=== PATIENT | male | born 1955 | race Caucasian/White ===

== ENCOUNTER 2018-05-14 07:15 | Inpatient (IN) | payer BC, OTHER ==
[2018-05-14] MEDS ORDERED: ACETAMINOPHEN 500 MG TAB PO ONE (07:59)
[2018-05-14] MEDS ORDERED: GABAPENTIN 300 MG CAP PO ONE (07:59)
[2018-05-14] MEDS ORDERED: morphINE SR 15 MG TAB PO ONE (07:59)
[2018-05-14] MEDS ORDERED: ceFAZolin 2 GM/DEXTROSE 100 ML IV ONE (07:59)
[2018-05-14] MEDS ORDERED: LR 1,000 ML IV ONE (08:00)
[2018-05-14] MEDS ORDERED: LIDOCAINE 1% 2 ML INJ ID PRN (08:00)
[2018-05-14] MEDS ORDERED: MIDAZOLAM 2 MG/2 ML VIAL IVP ONE (08:22)
[2018-05-14] MEDS ORDERED: BUPIVACAINE 0.25% 30 ML SDV ONE (08:32)
[2018-05-14] MEDS ORDERED: THROMBIN (BOVINE) 20,000 UNIT VIAL TP ONE (08:32)
[2018-05-14] MEDS ORDERED: CHLORHEXIDINE GLUC HIBICLENS 118 ML BTL TP ONE (08:32)
[2018-05-14] MEDS ORDERED: EPINEPHrine 1 MG/ML INJ ONE (08:33)
[2018-05-14] MEDS ORDERED: GENTAMICIN SULFATE 80 MG/2 ML VIAL ONE (08:33)
[2018-05-14] MEDS ORDERED: fentaNYL 250 MCG/5 ML INJ ONE (09:57)
[2018-05-14] MEDS ORDERED: PROPOFOL/EMULSION 500 MG/50 ML BOTTLE IV ONE ×3 (09:58→14:45)
[2018-05-14] MEDS ORDERED: BACITRACIN 50,000 UNITS/10 ML SYR IRR ONE (10:39)
--- NOTE | 2018-05-14 10:39 | PDHPUP ---
History & Physical Update H&P update statement: This history and physical update is based on an assessment of the patient which was completed after admission or registration (within 24 hours), but prior to the surgery/procedure. H&P update: H&P reviewed & patient examined
[2018-05-14] MEDS ORDERED: BISACODYL 10 MG SUPP PR PRN (10:42)
[2018-05-14] MEDS ORDERED: ONDANSETRON 4 MG/2 ML VIAL IVP PRN (10:42)
[2018-05-14] MEDS ORDERED: MAGNESIUM HYDROXIDE 30 ML UDCUP PO PRN (10:42)
[2018-05-14] MEDS ORDERED: POLYETHYLENE GLYCOL 3350 17 GM PKT PO PRN (10:42)
[2018-05-14] MEDS ORDERED: diphenhydrAMINE 25 MG CAP PO PRN (10:42)
[2018-05-14] MEDS ORDERED: LACTULOSE 20 GM/30 ML UDCUP PO PRN (10:42)
[2018-05-14] MEDS ORDERED: ONDANSETRON DISINTEGRATING 4 MG TAB PO PRN (10:42)
[2018-05-14] MEDS ORDERED: FLUTICASONE NASAL 120 SPRAYS/16 GM MDI EACHNARE PRN (10:42)
[2018-05-14] MEDS ORDERED: NS 1,000 ML IV SCH (10:45)
--- NOTE | 2018-05-14 10:54 | POSTOPPROG ---
Post Op Note Date of Operation: 05/20/18 Surgeon: Hannah Patel Agile Coach: Mayra Gleason, PAC Anesthesia: GET(General Endotracheal) Pre-op Diagnosis: Lumbar stenosis Post-op Diagnosis: Lumbar stenosis Indication: Lumbar stenosis Procedure: L3-S1 TLIF/PSF Inf/Abcess present in the surg proc area at time of surgery?: No EBL: Minimal Drains: Lorne MARIA Addendum - Addendum .: S: Low back pain O: NAD A&Ox3 MAEx4 5/5 and equal in BUE and BLE A/p 63y/o s/p L3-S1 TLIF/PSF -Advance diet as tolerated -Optimize pain management -PT/OT -RUSLAN x1 -Post op xrays pending -DVT prophx: TEDs, SCDs, Lovenox okay POD1 -Please notify NS with any change in neuro/motor exam
[2018-05-14] MEDS ORDERED: TRANEXAMIC ACID 1,000 MG in NS 100 ML IV ONE (11:04)
--- NOTE | 2018-05-14 11:07 | PDANEPAE ---
ANE History of Present Illness 63 year old male for L3,4,5,TLIF for right lumbar radicular symptoms. ANE Past Medical History - Cardiovascular History Hx Hypertension: No Hx Arrhythmias: No Hx Chest Pain: No Hx Coronary Artery / Peripheral Vascular Disease: No Hx CHF / Valvular Disease: No Hx Palpitations: No - Pulmonary History Hx COPD: No Hx Asthma/Reactive Airway Disease: No Hx Recent Upper Respiratory Infection: No Hx Oxygen in Use at Home: No Hx Sleep Apnea: No Sleep Apnea Screening Result - Last Documented: Negative - Neurologic History Hx Cerebrovascular Accident: No Hx Seizures: No Hx Dementia: No - Endocrine History Hx Diabetes: No - Renal History Hx Renal Disorders: No - Liver History Hx Hepatic Disorders: No - Neurological & Psychiatric Hx Hx Neurological and Psychiatric Disorders: Yes Neurological / Psychiatric History Comment: SCIATICA AND HIP PAIN - Cancer History Hx Cancer: No - Congenital Disorder History Hx Congenital Disorders: No - GI History Hx Gastrointestinal Disorders: No Gastrointestinal History Comment: NONE - Other Health History Other Health History: MUCOUS BUILD UP OVERNIGHT - Chronic Pain History Chronic Pain: No - Surgical History Prior Surgeries: carpal tunnel. R & L SHOULDER SURGERY ANE Review of Systems Review of systems is: negative Review of Systems: - Exercise capacity METS (RN): 5 METS ANE Patient History - Allergies Allergies/Adverse Reactions: No Known Allergies Allergy (Verified 04/11/18 10:54) - Home Medications Home Medications: Fluticasone Nasal [Flonase Nasal [place] (RX)] 1 sprays NASAL DAILY PRN 04/11/18 [ Last Taken 05/12/18] Glucosamine Sulfate [Glucosamine Sulfate 500 MG (*)] 500 mg PO DAILY 04/11/18 [ Last Taken 05/07/18] Herbals/Supplements -Info Only 1 ea PO DAILY 04/11/18 [Last Taken 05/07/18] Ibuprofen [Motrin (*)] 800 mg PO BID 04/11/18 [Last Taken 05/08/18] Multivitamins [Multivitamin (*)] 1 each PO DAILY 04/11/18 [Last Taken 05/07/18] [place]-3 Fatty Acids [Fish Oil 1000 mg (*)] 1,000 mg PO DAILY 04/11/18 [Last Taken 05/07/18] oxyCODONE IR [Oxycodone Ir (*)] 10 mg PO HS 04/11/18 [Last Taken 05/13/18] - NPO status NPO Since - Liquids (Date): 05/14/18 NPO Since - Liquids (Time): 08:00 NPO Since - Solids (Date): 05/13/18 NPO Since - Solids (Time): 21:00 - Smoking Hx Smoking Status: Never smoked - Family Anes Hx Family Hx Anesthesia Complications: none ANE Labs/Vital Signs - Vital Signs Blood Pressure: 162/84 Heart Rate: 59 Respiratory Rate: 15 O2 Sat (%): 96 Height: 173.99 cm Weight: 72.575 kg ANE Physical Exam - Airway Neck exam: FROM Mallampati Score: Class 2 Mouth exam: normal dental/mouth exam - Pulmonary Pulmonary: no respiratory distress - Cardiovascular Cardiovascular: regular rate and rhythym - ASA Status ASA Status: I, II (ETOH 3/day) ANE Anesthesia Plan Anesthesia Plan: general endotracheal anesthesia Lines/Monitors: arterial line
[2018-05-14] MEDS ORDERED: ALBUTEROL 3 ML DEYVIAL IH PRN (12:01)
[2018-05-14] MEDS ORDERED: MEPERIDINE 25 MG/0.5 ML AMP IVP PRN (12:01)
[2018-05-14] MEDS ORDERED: PROMETHAZINE HCL 25 MG/ML INJ IVP PRN (12:01)
[2018-05-14] MEDS ORDERED: METOCLOPRAMIDE 10 MG/2 ML VIAL IVP PRN (12:01)
[2018-05-14] MEDS ORDERED: LABETALOL HCL 5 MG/ML 20 ML MDV IVP PRN (12:01)
[2018-05-14] MEDS ORDERED: LR 500 ML IV PRN (12:01)
[2018-05-14] MEDS ORDERED: NALOXONE HCL 0.4 MG/ML INJ IVP PRN (12:01)
[2018-05-14] MEDS ORDERED: DIAZEPAM 5 MG/ML 1 ML SYR IVP PRN (12:01)
[2018-05-14] MEDS ORDERED: HYDROmorphONE/DILAUDID 2 MG/ML INJ ONE (12:10)
--- NOTE | 2018-05-14 15:00 | PDMN ---
Medical Necessity Medical necessity: [facility] S820 Lumbar Fusion, CPT 56134 Lumbar Fusion, MC IP only, 63 y/o pt s/p L3/4, L4/5, L5/S1, TLIF Lum Marquez Fusion w/ Stealth.
--- NOTE | 2018-05-14 17:37 | GOP ---
[f rep st] OPERATIVE REPORT DATE OF OPERATION: SURGEON: Hannah Patel DO NEUROSURGEON: Hannah Patel DO [employer] PROFESSOR: Flori Gleason PA-C PREOPERATIVE DIAGNOSIS: 1. Spondylolisthesis. 2. Stenosis. 3. Lumbago. 4. Herniated nucleus pulposus. 5. Radiculopathy. POSTOPERATIVE DIAGNOSIS: 1. Spondylolisthesis. 2. Stenosis. 3. Lumbago. 4. Herniated nucleus pulposus. 5. Radiculopathy. PROCEDURE PERFORMED: 1. L3-L4, L4-L5, L5-S1 transforaminal lumbar interbody fusion with Elevate 8 x 28 graft at L3-4, 7 x 28 graft at L4-5 and BMP and autologous bone at L5-S1 as the disk space was not large enough to plac e a graft beyond autologous bone and BMP. L3, L4, L5, S1 bilateral posterior pedicle screws. 2. Stealth stereotaxis. 3. Autograft, allograft and BMP. FINDINGS: SPECIMENS: None. ESTIMATED BLOOD LOSS: 200 mL. INDICATIONS: This is a 63-year-old male with significant back pain, leg pain with spondylolisthesis, stenosis, herniated disk and radiculopathy who has failed conservative management, elected to move f orward with L3, L4, L5, S1 TLIF. He understands that L2-3 is also stenotic, but he is not symptomati c from this at this time, and he was identified, consented and sites were marked. DESCRIPTION OF PROCEDURE: Brought to the operating room, anesthetized under general endotracheal tub e anesthesia, rolled onto the Lorne table. All pressure points were appropriately padded. He was prepped and draped in the usual sterile fashion. O arm was brought in. 18-gauge spinal needles were used to fabiola the incision. Incision was anesthetized with 0.5% Marcaine with epinephrine. Incision was made with a 10 blade. Hemostasis was obtained with bipolar and Bovie cautery dissecting down ont o the laminae of L3, L4, L5 and S1 and out around the facet joints at these levels. Oumartys was u sed in a conservative fashion for hemostasis. We then took an x-ray and verified we were in the appr opriate position. Placed a Immunetrics Stealth arm and performed a stereotactic spin. We then used a high-speed drill starting on the left side, to drill out the facet joints and at each of these levels . The L5-S1 facet joints were absolutely horizontal and could not get lateral enough to drill these out, so took off the superior portion of that facet joint, and then using the Stealth stereotactic aw l created a starting point at S1, then the PowerEase stereotactically to tap and measured a 6.5 x 40 mm screw at S1, which was placed with a PowerEase stereotactically after checking the hole with a bal l-tip probe. We then completed this procedure at L5, placing a 6.5 x 50 mm screw at L4, placing a 6. 5 x 55 mm screw at L3, placing a 6.5 x 55 mm screw. On the right, we completed the procedure, having decorticated all of the bone on the left side and all of the facet joints by doing the same on the r ight side. We actually removed the facet joints on the right side and using the same stereotactic pr ocedure, placed a 6.5 x 40 mm screw at S1, a 6.5 x 50 mm screw at L5, a 6.5 x 55 mm screw at L4 and a 6.5 x 55 mm screw at L3. We then placed 80 mm rods bilaterally, placed the locking caps and placed the patient under distraction bilaterally, locking these and verifying superiorly and inferiorly that we had tala visualized. We then brought in the microscope and using a high-speed drill and [place], removed the spinous process and lamina of L3, L4 and L5, and using the drill and 2 and 3 Kerrisons to perform a complete laminectomy and decompression facetectomy of L3-4, L4-5 and L5-S1 on the right. At L4-5 on the right there was a significant amount of scar. The nerve roots were well decompressed. We were then able to, starting at L3-4 retract the nerve root medially with a Immunetrics nerve root retractor and used an 11 blade to enter the disk space and then used a series of sequential dion, shaving up to a size 12, removing disk and cartilaginous endplate preparing the endplates with ring c urettes. We then measured the Elevate cage graft, packed BMP and the patient's own bone into the gra ft and tamped it into place so that it was in a good position in the AP and lateral plane, fully depl oyed the graft. Moved down to L4-5, where we were also able to perform the same procedure and place an Elevate graft. At L5-S1 the disk space was exceedingly small and very sclerotic. We retracted th e thecal sac medially and entered the disk space with an 11 blade, and then we tamped. We attempted a 5 shaver. We could not even get a 5 shaver well into this space. We were already getting endplate . I attempted a 6 osteotome. Again, we could not get the disk space open enough to place an actual PEEK graft or Elevate graft. However, we did pull out the endplate and packed this with BMP and the patient's own bone. We then copiously irrigated with over 2.5 L of gentamicin-infused saline, packed the remaining facet joints with BMP and autologous bone and out laterally with autologous bone and t hen trocar to drain out inferiorly placed in the subfascial space. The 10-Tunis[place] PVC drain after met iculous hemostasis had been obtained. Closed the fascia with 0 Vicryl pop-offs, subcutaneous layer o f 2-0 Vicryl pop-offs, cutaneous layer of 3-0 Vicryl pop-offs. The skin was closed with 4-0 running Monocryl and Steri-Strips. Drain was sutured with a 2-0 Vicryl pop-off and placed to bulb suction. Patient tolerated procedure well. Neuro monitor remained stable, and patient tolerated procedure wel l. CHIEF COMPLAINT: Back pain and leg pain. FLUIDS: 3200 mL crystalloid. URINE OUTPUT: Not recorded. DRAINS: One RUSLAN in the subfascial space to bulb suction. COMPLICATIONS: None. /[id number]/MODL
[2018-05-14] MEDS ORDERED: fentaNYL 100 MCG/2 ML INJ ONE (17:41)
[2018-05-14] MEDS ORDERED: DIAZEPAM 5 MG/ML 1 ML SYR ONE (17:41)
[2018-05-14] MEDS: fentaNYL 100 MCG/2 ML INJ IVP PRN ×3 (17:43→18:49)
[2018-05-14] MEDS ORDERED: LORazepam 1 MG TAB PO PRN (18:05)
[2018-05-14] MEDS ORDERED: FLUMAZENIL 0.5 MG/5 ML MDV IVP PRN (18:05)
[2018-05-14] MEDS: ACETAMINOPHEN 500 MG TAB PO SCH ×2 (19:40→21:14)
[2018-05-14] MEDS: METHOCARBAMOL 750 MG TAB PO PRN (19:41)
[2018-05-14] MEDS: THIAMINE HCL 500 MG in NS 100 ML IV SCH (19:49)
[2018-05-14] MEDS: SENNOSIDES/DOCUSATE SODIUM TAB PO SCH (19:55)
[2018-05-14] MEDS: FAMOTIDINE 20 MG TAB PO SCH (19:55)
[2018-05-14] MEDS: ceFAZolin 2 GM/DEXTROSE 100 ML IV SCH (19:57)
[2018-05-14] MEDS: oxyCODONE IR 5 MG TAB PO PRN (20:11)
[2018-05-15] MEDS: ceFAZolin 2 GM/DEXTROSE 100 ML IV SCH (02:19)
[2018-05-15] MEDS: oxyCODONE IR 5 MG TAB PO PRN ×5 (03:27→20:44)
[2018-05-15] MEDS: ACETAMINOPHEN 500 MG TAB PO SCH ×3 (06:31→20:17)
[2018-05-15] MEDS: METHOCARBAMOL 750 MG TAB PO PRN ×2 (07:52→18:44)
[2018-05-15] MEDS: SENNOSIDES/DOCUSATE SODIUM TAB PO SCH ×2 (07:54→20:17)
[2018-05-15] MEDS: MULTIVITAMINS 1 EACH TAB PO SCH (07:55)
[2018-05-15] MEDS: FAMOTIDINE 20 MG TAB PO SCH ×2 (07:55→20:25)
--- NOTE | 2018-05-15 08:05 | NEUSURGPN ---
Assessment/Plan: A/p 63y/o s/p L3-S1 TLIF/PSF POD#1 -Advance diet as tolerated -Optimize pain management - will increase oral meds today -PT/OT -RUSLAN x1 - 480cc out -Post op xrays pending -DVT prophx: TEDs, SCDs, Lovenox okay POD1 -Please notify NS with any change in neuro/motor exam -D/w Dr Patel -Call NS with any issues Subjective: Pt resting in bed, c/o back pain. Objective: AAOx3 NAD VSS MAEx4 Motor 5/5 BLE +LT JPx1 Hazel is out Urinary Catheter in Place: No Catheter Insertion Date: 05/14/18 - Physician Discussed Patient with : Jorge Neurosurgery Physical Exam - Vitals, I&O, Labs I and O 05/14/18 05/15/18 05/16/18 05:59 05:59 05:59 Intake Total 5030 Output Total 2880 Balance 2150 Weight 72.3 kg Intake: Oral (ml) 760 IV Intake (ml) 3500 IV Infused (ml) 770 Ns 1,000 ml @ 75 mls/hr 770 IV CONT DEDRICK Rx#: [id number] Output: Urine (ml) 2200 Catheter 2200 Estimated Blood Loss (ml) 200 RUSLAN Drain Output (ml) 480 #1 Right Lorne Pandya 480 Vital Signs Temp Pulse Resp BP Pulse Ox 37.0 C 68 16 138/74 H 94 05/15/18 07:43 05/15/18 07:43 05/15/18 07:43 05/15/18 07:43 05/15/18 07:43 ICD10 Worksheet Patient Problems: Problems Problem Status Onset Degenerative disc disease, lumbar Acute - ICD10 Problem Qualifiers (1) Degenerative disc disease, lumbar
[2018-05-15] MEDS: THIAMINE HCL 500 MG in NS 100 ML IV SCH (08:55)
[2018-05-15] MEDS: ENOXAPARIN 40 MG/0.4 ML SYR SC SCH (16:41)
[2018-05-15] MEDS: LORazepam 2 MG/ML INJ IVP PRN (20:24)
[2018-05-16] MEDS: METHOCARBAMOL 750 MG TAB PO PRN ×3 (00:13→19:38)
[2018-05-16] MEDS: oxyCODONE IR 5 MG TAB PO PRN ×5 (01:56→22:03)
[2018-05-16] MEDS: ACETAMINOPHEN 500 MG TAB PO SCH ×3 (06:33→22:03)
[2018-05-16] MEDS: ENOXAPARIN 40 MG/0.4 ML SYR SC SCH (08:02)
[2018-05-16] MEDS: FAMOTIDINE 20 MG TAB PO SCH ×2 (08:02→19:38)
[2018-05-16] MEDS: SENNOSIDES/DOCUSATE SODIUM TAB PO SCH ×2 (08:02→19:38)
[2018-05-16] MEDS: MULTIVITAMINS 1 EACH TAB PO SCH (08:02)
[2018-05-16] MEDS: THIAMINE HCL 500 MG in NS 100 ML IV SCH (08:29)
--- NOTE | 2018-05-16 08:35 | NEUSURGPN ---
Assessment/Plan: A/p 63y/o s/p L3-S1 TLIF/PSF POD#2 -Advance diet as tolerated -Optimize pain management - add polar care ice pack -PT/OT -RUSLAN x1 - 480cc out -Post op xrays show stable hardware -DVT prophx: TEDs, SCDs, Lovenox okay POD#1 -Please notify NS with any change in neuro/motor exam -D/w Dr Patel -Call NS with any issues Subjective: Pt resting in bedside chair. Had a lot of pain last night but doing well this am Objective: AAOx3 NAD VSS MAEx4 Motor 5/5 BLE Brace on +LT RUSLAN x1 Urinary Catheter in Place: No Catheter Insertion Date: 05/14/18 - Physician Discussed Patient with : Jorge Neurosurgery Physical Exam - Vitals, I&O, Labs I and O 05/15/18 05/16/18 05/17/18 05:59 05:59 05:59 Intake Total 5030 1550 Output Total 2880 1755 50 Balance 2150 -205 -50 Weight 72.3 kg Intake: Oral (ml) 760 1550 IV Intake (ml) 3500 IV Infused (ml) 770 Ns 1,000 ml @ 75 mls/hr 770 IV CONT DEDRICK Rx#: [id number] Output: Urine (ml) 2200 1400 Catheter 2200 Toilet 1400 Estimated Blood Loss (ml) 200 RUSLAN Drain Output (ml) 480 355 50 #1 Right Lorne Pandya 480 355 50 Other: Intake Quantity Yes Sufficient Number of Voids Toilet 1 Vital Signs Temp Pulse Resp BP Pulse Ox 36.9 C 80 16 140/81 H 92 05/16/18 07:30 05/16/18 07:30 05/16/18 07:30 05/16/18 07:30 05/16/18 07:30 ICD10 Worksheet Patient Problems: Problems Problem Status Onset Degenerative disc disease, lumbar Acute - ICD10 Problem Qualifiers (1) Degenerative disc disease, lumbar
[2018-05-16] MEDS: LORazepam 2 MG/ML INJ IVP PRN ×2 (09:30→11:39)
--- NOTE | 2018-05-16 13:28 | ASMTCMCOM ---
CM Note CM Note Notes: Pt has agreed to in home PT/OT and a referral will be made today to [facility] [place]. CM to follow. D/C Plan: Home with [facility] for PT/OT. Date Signed: 05/16/2018 01:27 PM Electronically Signed By:Latesha Street
[2018-05-16] MEDS ORDERED: MAGNESIUM CITRATE 300 ML BOTTLE PO ONE (17:00)
[2018-05-17] MEDS: oxyCODONE IR 5 MG TAB PO PRN ×3 (03:54→11:19)
[2018-05-17] MEDS: METHOCARBAMOL 750 MG TAB PO PRN ×2 (03:58→10:26)
[2018-05-17] MEDS: ACETAMINOPHEN 500 MG TAB PO SCH (05:45)
--- NOTE | 2018-05-17 08:28 | SOAPPROG ---
SOAP Progress Note Assessment/Plan: Assessment: A/p 63y/o s/p L3-S1 TLIF/PSF POD#3 Plan: -Advance diet as tolerated -Optimize pain management - add polar care ice pack -PT/OT -dc RUSLAN this morning and change dressing -Post op xrays show stable hardware -DVT prophx: TEDs, SCDs, Lovenox okay POD#1 -Please notify NS with any change in neuro/motor exam - dc home today (scripts for Oxycodone and Robaxin on chart) 05/17/18 08:26 Subjective: Subjective: Pt resting in bedside chair. Had a lot of pain last night but doing well this am Objective: Vital Signs Temp Pulse Resp BP Pulse Ox 37.0 C 82 16 148/75 H 97 05/16/18 23:05 05/16/18 23:05 05/17/18 02:32 05/17/18 02:32 05/17/18 02:32 05/16/18 05/17/18 05/18/18 05:59 05:59 05:59 Intake Total 1550 1100 Output Total 1755 205 Balance -205 895 Objective: AAOx3 NAD VSS MAEx4 Motor 5/5 BLE Dressing C/D/I +LT RUSLAN x1 - Time Spent With Patient Time Spent With Patient: All questions and concerns addressed. Encouraged him to call the office on Saturday to get his [place] paperwork sent. Also rviewed the [facility] protocol. ICD10 Worksheet Patient Problems: Problems Problem Status Onset Degenerative disc disease, lumbar Acute
[2018-05-17] MEDS: MULTIVITAMINS 1 EACH TAB PO SCH (09:00)
[2018-05-17] MEDS: FAMOTIDINE 20 MG TAB PO SCH (09:00)
[2018-05-17] MEDS ORDERED: THIAMINE HCL 100 MG TAB PO SCH (09:00)
[2018-05-17] MEDS: SENNOSIDES/DOCUSATE SODIUM TAB PO SCH (09:01)
[2018-05-17] MEDS: ENOXAPARIN 40 MG/0.4 ML SYR SC SCH (09:02)
[2018-05-17 09:16] VITALS: BP 122/72
--- NOTE | 2018-05-17 09:58 | PDIAF ---
- Diagnosis Diagnosis: S/P L3-S1 TLIF Code Status: Full Code - Medication Management Discharge Medications: Medications to Continue on Transfer Fluticasone Nasal [Flonase Nasal [place]] 1 sprays NASAL DAILY PRN 04/11/18 [Last Taken 05/12/18] Herbals/Supplements -Info Only 1 ea PO DAILY 04/11/18 [Last Taken 05/07/18] Multivitamins [Multivitamin (*)] 1 each PO DAILY 04/11/18 [Last Taken 05/07/18] [place]-3 Fatty Acids [Fish Oil 1000 mg (*)] 1,000 mg PO DAILY 04/11/18 [Last Taken 05/07/18] Methocarbamol [Robaxin 750 mg (*)] 750 mg PO QID PRN #60 tab 05/17/18 [Last Taken Unknown] Sennosides/Docusate Sodium [Senokot-S] 1 - 2 tab PO BID tab 05/17/18 [Last Taken Unknown] oxyCODONE IR [Oxycodone Ir (*)] 5 - 15 mg PO Q4HRS PRN #90 tab 05/17/18 [Last Taken Unknown] Discharge Medications: Refer to the Discharge Home Medication list for PRN reason. PICC Care - Routine: N/A - Orders Services needed: Home Care, Physical Therapy, Occupational Therapy Home Care Face to Face: I certify that this patient was under my care and that I had the required [id number] encounter meeting the encounter requirements on the discharge day. My findings support the fact that the patient is homebound as defined in Home Care Face to Face Continued: CMS Chapter 7 Medicare Benefits Manual 30.1.1 , The condition of the patient is such that there exists a normal inability to leave home and consequently, leaving home would require a considerable and taxing effort. Diet Recommendation: no restrictions on diet Diet Texture: Regular Texture Diet Additional Instructions: No bending or twisting Do not lift greater than 10 pounds Wear brace when out of bed - Follow Up Care Current Providers and Referrals: David Pace DO [Primary Care Provider] - Hannah Patel DO [Doctor of Osteopathy] - follow up in 2 weeks
--- NOTE | 2018-05-17 10:39 | ASDISCHSUM ---
Discharge Information Plan Status:Home with Home Health Medically Cleared to Leave:05/17/2018 Discharge Date:05/17/2018 CM D/C Disposition:Home Health Service ADT D/C Disposition:[id number] Projected Discharge Date:05/17/2018 11:00 AM Transportation at D/C:Family Discharge Delay Reason: Follow-Up Date:05/17/2018 11:00 AM Discharge Slot: Final Diagnosis: Placement Information Referral Type:*Home Health Care Services Referral ID:[id number] Provider Name:[facility] Address 1:[address] Phone Number: Address 2:[facility] [address] Fax Number: City:[place] Selection Factors: State:[place] Patient Contact Information Contact Name:ANNABELLE Relationship: Address:[address] City:[facility] Phone: State/Zip Code:[place] [address] Email: Financial Information Financial Class:BCOP Primary Plan Desc:BC OUT OF STATE PP Primary Plan Number:[id number] Secondary Plan Desc: Secondary Plan Number: Assessment Information LACE LACE Length of stay for Answers: 3 days current admission Acuity / Level of Answers: Yes Care: Did the patient have an inpatient admission? Comorbidities - select Answers: Opioid dependence all that apply / Chronic pain # of Emergency department Answers: 0 visits in the last 6 months Score: 10 Date Signed: 05/17/2018 10:37 AM Electronically Signed By:RANULFO Stokes [facility] CM Progress Note CM Note CM Note Notes: Pt has agreed to in home PT/OT and a referral will be made today to [facility] which serves [place]. to follow. D/C Plan: Home with [facility] for PT/OT. Date Signed: 05/16/2018 01:27 PM Electronically Signed By:Latesha Street Case Management Discharge Plan Note Case Management Discharge Discharge Order Complete? Answers: Yes Patient to Obtain Answers: via Family Medications Transportation Arranged Answers: Family/Friends Discharge Comments Notes: Pt is discharging home today with his and [facility], PT/OT. D/C orders, meds sent via [employer]. Pt informed start of care will most likely be 05/21/18. Date Signed: 05/17/2018 10:36 AM Electronically Signed By:RANULFO Stokes Intervention Information
== END 2018-05-17 11:55 | disposition home health service (06) | DRG 460 ==
LOC: F3N 07:52 → F2N 19:09 → F3N 05-15 13:46
PROVIDERS: ADMIT Neurological Surgery; ATTEND Neurological Surgery
PROC: 0SG30AJ Fusion of Lumbosacral Joint with Interbody Fusion Device, Posterior Approach, Anterior Column, Open Approach (ICD-10-PCS; principal; 2018-05-14 09:00)
PROC: 4A1004G Monitoring of Central Nervous Electrical Activity, Intraoperative, Open Approach (ICD-10-PCS; principal; 2018-05-14 09:00)
PROC: 01NB0ZZ Release Lumbar Nerve, Open Approach (ICD-10-PCS; principal; 2018-05-14 09:00)
PROC: 00NY0ZZ Release Lumbar Spinal Cord, Open Approach (ICD-10-PCS; principal; 2018-05-14 09:00)
PROC: 0SG10AJ Fusion of 2 or more Lumbar Vertebral Joints with Interbody Fusion Device, Posterior Approach, Anterior Column, Open Approach (ICD-10-PCS; principal; 2018-05-14 09:00)
DX: M48.061 Spinal stenosis, lumbar region without neurogenic claudication (principal); M43.16 Spondylolisthesis, lumbar region; M51.16 Intervertebral disc disorders with radiculopathy, lumbar region
CPT/HCPCS: 97116-GP; 97161-GP; 97165-GO; 97530-GP; 97535-GO; C1713; G0515-GO; J0171; J0690; J1170; J1580; J1650; J2060; J2250; J2270; J2704; J3010; J3360; J3411